=== PATIENT | female | born 1995 | race Two or more races ===

== ENCOUNTER 2023-06-15 16:16 | Emergency (ER) | payer MEDICAID ==
[~2023-06-15] VITALS: Ht 157.5 cm; Wt 105.4 kg
[2023-06-15 16:52] VITALS: BP 122/75; PULSE 79; RESP 20; O2SAT 98
== END 2023-06-16 01:39 | disposition left against medical advice (07) ==
LOC: ER 16:16
DX: H92.02 Otalgia, left ear (principal); R50.9 Fever, unspecified; Z53.21 Procedure and treatment not carried out due to patient leaving prior to being seen by health care provider

== ENCOUNTER 2024-05-15 10:05 | Emergency (ER) | payer MEDICAID ==
[~2024-05-15] VITALS: Ht 160 cm; Wt 100.0 kg
[2024-05-15 10:09] VITALS: BP 116/63; PULSE 86; RESP 16; O2SAT 94
[2024-05-15] MEDS ORDERED: MORPHINE SULFATE 4 MG/ML SYR/VIAL IV ONE (11:00)
[2024-05-15] MEDS ORDERED: SODIUM CHLORIDE 0.9% 1,000 ML IV ONE (11:00)
[2024-05-15] MEDS ORDERED: ONDANSETRON HCL 4 MG/2 ML VIAL IV ONE (11:00)
--- NOTE | 2024-05-15 12:16 | ED.PDOC ---
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 Patient reports that she had started experiencing vaginal bleeding with associated lower abdominal pain and lightheadedness since . Patient relays that she was seen by her doctor 2 days ago and was told she was having a miscarriage at that time. Patient states this was her first , but was not sure how far along she was. Patient denies any N/V/D, dizziness, headache, fever, or chills. Pelvic ultrasound, CBC, basic metabolic panel, coagulation panel, serum quant itative hCG, type and screen and Rh were ordered 1 L 0.9 normal saline IV bolus, morphine 4 mg IV and Zofran 4 mg IV were ordered When patient was called for studies and treatment, there was no answer. Patient was called multiple times without response. It was assumed the patient had eloped from the ED. 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, Medications, Allergies Allergies: Coded Allergies: Amoxicillin (Verified Allergy, Unknown, 06/15/23) Information Source: Patient, Emergency Med Personnel Mode of Arrival: EMS Timing: Days Prehospital treatment: None Severity: Moderate Vaginal Discharge: None Vaginal Lesions: None Bleeding Quality: Bright Red, Clotted Vaginal Mass: None Onset Of Mass/Bleeding: Spontaneous Sexual Activity: Last Consensual [place]: Unknown Control: None History of: Current Associated Signs and Symptoms: Vaginal Bleeding, Abdominal Pain, Faintness Past Medical History PAST MEDICAL HISTORY: Denies Surgical History: Appendectomy 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 Family History Family History: Reviewed,noncontributory to illness Social History Smoker: Non-Smoker Alcohol: Denies ETOH Use Drugs: Denies Drug Use Lives In: Home Constitutional: denies: chills, diaphoresis, fatigue, fever, malaise, sweats, weakness, others EENTM: denies: blurred vision, double vision, ear bleeding, ear discharge, ear drainage, ear pain, ear ringing, eye pain, eye redness, hearing loss, mouth pain, mouth swelling, nasal discharge, nose bleeding, nose congestion, nose pain, photophobia, tearing, throat pain, throat swelling, voice changes, others Respiratory: denies: cough, hemoptysis, orthopnea, SOB at rest, shortness of breath, SOB with excertion, stridor, wheezing, others Cardiovascular: reports: lightheadedness; denies: chest pain, dizzy spells, diaphoresis, Dyspnea on exertion, edema, irregular heart beat, left arm pain, palpitations, PND, syncope, others Gastrointestinal: reports: abdominal pain; denies: abdomen distended, blood streaked bowels, constipated, diarrhea, dysphagia, difficulty swallowing, hematemesis, melena, nausea, poor appetite, poor fluid intake, rectal bleeding, rectal pain, vomiting, others Genitourinary: reports: abnormal vagina bleeding; denies: burning, dyspareunia, dysuria, flank pain, frequency, hematuria, incontinence, pain, , vagina discharge, urgency, others Neurological: denies: dizziness, fainting, headache, left sided numbness, left sided weakness, numbness, paresthesia, pre-existing deficit, right sided numbness, right sided weakness, seizure, speech problems, tingling, tremors, weakness, others Musculoskeletal: denies: back pain, gout, joint pain, joint swelling, muscle pain, muscle stiffness, neck pain, others Integumetry: denies: bruises, change in color, change in hair/nails, dryness, laceration, lesions, lumps, rash, wounds, others Allergic/Immunocompromised: denies: Difficulty Healing, Frequent Infections, Hives, Itching, others Hematologic/Lymphatic: denies: anemia, blood clots, easy bleeding, easy bruising, swollen glands, others Endocrine: denies: excessive hunger, excessive sweating, excessive thirst, excessive urination, flushing, intolerance to cold, intolerance to heat, unexplained weight gain, unexplained weight loss, others Psychiatric: denies: anxiety, bipolar disorder, depression, hopeless, panic disorder, schizophrenia, sleepless, suicidal, others All Other Systems: Reviewed and Negative Physical Exam General Appearance: Mild Distress HEENT: PERRL/EOMI Neck: Full Range of Motion, Normal Inspection Respiratory: Lungs Clear, No Accessory Muscle Use, No Respiratory Distress, Normal Breath Sounds Cardiovascular: No Edema, No JVD, Regular Rate/Rhythm Breast Exam: Deferred Gastrointestinal: Soft, Suprapubic, Tenderness Genitalia: Deferred Pelvic: Deferred Rectal: Deferred Extremities: Normal inspection, Normal range of motion, Non-tender, No pedal edema Musculoskeletal : Apperance: Normal Neurologic: Alert (Oriented x4), Normal Affect, Normal Mood, Other (Moves all extremities and follows commands. Is appropriately conversant. No gross focal deficit.) Cerebellar Function: NOT DONE Reflexes: NOT DONE Skin: Dry, Normal Color, Warm Lymphatic: NOT DONE Was a procedure done? Was a procedure done?: No Differential Diagnosis (CORPORATE WELLNESS COORDINATOR) Vaginal Bleeding: - Incomplete, Blood Loss Anemia, Ectopic , UTI X-Ray, Labs, Meds, VS Vital Signs Date Time Temp Pulse Resp B/P (MAP) Pulse Ox O2 Delivery O2 Flow Rate FiO2 05/15/24 10:09 98.5 86 16 116/63 (80) 94 X-Ray, Labs, Meds, VS Comment 29-year-old female , unknown length of current brought in by EMS complaining of pelvic pain and vaginal bleeding Vitals remarkable for oxygen saturation 94% on room air Exam remarkable for suprapubic tenderness to palpation. No rebound or guarding. No tenderness to percussion. Time of 1ST Reevaluation: 12:15 Reevaluation 1ST: Unchanged Patient Education/Counseling: Diagnosis, Treatment Family Education/Counseling: No Family Present Departure 1 Departure Time of Disposition: 12:00 Impression: Primary Impression: Vaginal bleeding Additional Impression: Pelvic pain Disposition: LEFT AWOL/ELOPED Condition: Fair Discharged With: Self Critical Care Note Critical Care Time?: No Stability Stability form required: No Heart Score Heart Score: Heart Score Response (Comments) Value History N/A 0 EKG N/A 0 Age N/A 0 Risk Factors N/A 0 Troponin N/A 0 Total 0 I personally scribed for LEXI HUNT MD ([email or web address]) on 05/15/24 at 12:16. Electronically submitted by Eren Ivory ([email or web address]). LEXI HUNT MD May 15, 2024 12:16
== END 2024-05-15 12:31 | disposition left against medical advice (07) ==
LOC: ER 10:05 → EDBD 10:05 → ER 12:31
DX: N93.9 Abnormal uterine and vaginal bleeding, unspecified (principal); R55 Syncope and collapse; R42 Dizziness and giddiness; R10.2 Pelvic and perineal pain; Z88.0 Allergy status to penicillin; Z90.49 Acquired absence of other specified parts of digestive tract

== ENCOUNTER 2025-01-10 20:26 | Emergency (ER) | payer MEDICAID ==
[~2025-01-10] VITALS: Ht 157.5 cm; Wt 86.4 kg
[2025-01-10] MEDS: CYCLOBENZAPRINE HCL 10 MG TAB PO ONE (21:29)
[2025-01-10] MEDS: KETOROLAC TROMETH 60MG/2ML VIAL IM ONE (21:29)
[2025-01-10] MEDS: LIDOCAINE 5% TOPICAL PATCH TOP ONE (21:30)
[2025-01-10] MEDS: ACETAMINOPHEN 325 MG TAB PO ONE (21:30)
[2025-01-10 21:35] VITALS: BP 118/75; PULSE 85; RESP 18; TEMP 97.8; O2SAT 98
[2025-01-10 21:46] LABS: Urine Protein, UAD 1+ (Negative)
--- NOTE | 2025-01-10 22:30 | ED.PDOC ---
History of Present Illness HPI Comments 29-year-old female with past medical history of herniated disc then team for evaluation of intermittent lower back pain over the past couple of weeks. Patient states that she gets flares of pain from time to time. Had no new trauma, injury causing current discomfort over the past couple of weeks. Denies any current radiation of pain to either leg. No numbness, weakness of the extremities. No bowel or bladder incontinence. Has been taking intermittent ibuprofen with some relief. Denies any urinary symptoms. 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 Family History Family History: Reviewed,noncontributory to illness Social History Smoker: Non-Smoker Alcohol: Denies ETOH Use Drugs: Denies Drug Use Lives In: Home Constitutional: denies: chills, diaphoresis, fatigue, fever, malaise, sweats, weakness, others EENTM: denies: blurred vision, double vision, ear bleeding, ear discharge, ear drainage, ear pain, ear ringing, eye pain, eye redness, hearing loss, mouth pain, mouth swelling, nasal discharge, nose bleeding, nose congestion, nose pain, photophobia, tearing, throat pain, throat swelling, voice changes, others Respiratory: denies: cough, hemoptysis, orthopnea, SOB at rest, shortness of breath, SOB with excertion, stridor, wheezing, others Cardiovascular: denies: chest pain, dizzy spells, diaphoresis, Dyspnea on exertion, edema, irregular heart beat, left arm pain, lightheadedness, palpitations, PND, syncope, others Gastrointestinal: denies: abdomen distended, abdominal pain, blood streaked bowels, constipated, diarrhea, dysphagia, difficulty swallowing, hematemesis, melena, nausea, poor appetite, poor fluid intake, rectal bleeding, rectal pain, vomiting, others Genitourinary: denies: abnormal vagina bleeding, burning, dyspareunia, dysuria, flank pain, frequency, hematuria, incontinence, pain, , vagina discharge, urgency, others Neurological: denies: dizziness, fainting, headache, left sided numbness, left sided weakness, numbness, paresthesia, pre-existing deficit, right sided numbness, right sided weakness, seizure, speech problems, tingling, tremors, weakness, others Musculoskeletal: reports: back pain, muscle pain Integumetry: denies: bruises, change in color, change in hair/nails, dryness, laceration, lesions, lumps, rash, wounds, others Allergic/Immunocompromised: denies: Difficulty Healing, Frequent Infections, Hives, Itching, others Hematologic/Lymphatic: denies: anemia, blood clots, easy bleeding, easy bruising, swollen glands, others Endocrine: denies: excessive hunger, excessive sweating, excessive thirst, excessive urination, flushing, intolerance to cold, intolerance to heat, unexplained weight gain, unexplained weight loss, others Physical Exam General Appearance: Normal HEENT: NOT DONE Neck: NOT DONE Respiratory: Lungs Clear, No Accessory Muscle Use, No Respiratory Distress, Normal Breath Sounds Cardiovascular: Normal Peripheral Pulses, Regular Rate/Rhythm Breast Exam: Deferred Gastrointestinal: Non Tender Genitalia: Deferred Pelvic: Deferred Rectal: Deferred Extremities: None Neurologic: No Motor Deficits, No Sensory Deficits Cerebellar Function: Normal Reflexes: Normal Skin: NOT DONE Lymphatic: NOT DONE Was a procedure done? Was a procedure done?: No Differential Dx Considerations may include: herniated disc vs degenerative disc disease vs lumbar muscle spasm X-Ray, Labs, Meds, VS Vital Signs Date Time Temp Pulse Resp B/P (MAP) Pulse Ox O2 Delivery O2 Flow Rate FiO2 01/10/25 21:35 85 18 98 Room Air 01/10/25 21:35 97.8 85 18 118/75 (89) 98 97.8 01/10/25 20:37 98.6 76 18 135/91 97 98.6 Lab Test 01/10/25 21:25 Range/Units Urine Color Yellow Yellow Urine Clarity Turbid H Clear Urine pH 5.5 5.0-9.0 Urine Specific [place] 1.035 1.001-1.035 Urine Protein 1+ H Negative Urine Ketones Trace Negative Urine Blood Negative Negative /uL Urine Nitrite Negative Negative Urine Bilirubin Negative Negative Urine Urobilinogen Normal Negative mg/dL Urine Leukocyte Esterase 1+ Negative /uL Urine RBC 2 0 - 4 /hpf Urine Microscopic WBC 6 H 0-5 /HPF Urine Squamous Epithelial Cells Mod <5 /hpf Urine Bacteria None seen None Seen /hpf Urine Mucus Few None Seen Urine Glucose Normal Normal mg/dL Urine Test Negative Negative Current Medications Medications (Trade) Dose Ordered Sig/Dipika Route Start Time Stop Time Status Last Admin Ketorolac Tromethamine (Toradol Injection) 30 mg ONCE ONCE IM 01/10/25 21:00 01/10/25 21:01 DC 01/10/25 21:29 Acetaminophen (Tylenol Tablet) 975 mg ONCE ONCE PO 01/10/25 21:00 01/10/25 21:01 DC 01/10/25 21:30 Lidocaine (Lidoderm 5% Topical Patch) 1 patch ONCE ONCE TOP 01/10/25 21:00 01/10/25 21:01 DC 01/10/25 21:30 Cyclobenzaprine HCl (Flexeril Tablet) 10 mg ONCE ONCE PO 01/10/25 21:15 01/10/25 21:16 DC 01/10/25 21:29 Time of 1ST Reevaluation: 22:24 (Patient reporting improvement of discomfort after interventions. Ambulating steadily.) Reevaluation 1ST: Improved Patient Education/Counseling: Diagnosis, Treatment, Need For Follow Up Family Education/Counseling: No Family Present SEPSIS Sepsis Screen Date sepsis recognized/suspect: Jan 10, 2025 Time Sepsis recognized/suspect: 2039 Recent Procedure: No On Antibiotic Therapy: No Respiratory Rate >20: No Heart Rate >90: No Temp<36 C (96.8 F) or >38.3 C: No SBP <90 or MAP <65 mmHG: No New Acute Mental Status Change: No Is the patient on CPAP, BIPAP,: No Vital Signs Date Time Temp Pulse Resp B/P (MAP) Pulse Ox O2 Delivery O2 Flow Rate FiO2 01/10/25 21:35 85 18 98 Room Air 01/10/25 21:35 97.8 85 18 118/75 (89) 98 97.8 01/10/25 20:37 98.6 76 18 135/91 97 98.6 Medications Medications Dose Ordered Sig/Dipika Route Start Time Stop Time Status Last Admin Dose Admin Acetaminophen 975 mg ONCE ONCE PO 01/10/25 21:00 01/10/25 21:01 DC 01/10/25 21:30 Cyclobenzaprine HCl 10 mg ONCE ONCE PO 01/10/25 21:15 01/10/25 21:16 DC 01/10/25 21:29 Ketorolac Tromethamine 30 mg ONCE ONCE IM 01/10/25 21:00 01/10/25 21:01 DC 01/10/25 21:29 Lidocaine 1 patch ONCE ONCE TOP 01/10/25 21:00 01/10/25 21:01 DC 01/10/25 21:30 Departure 1 Departure Time of Disposition: 22:27 (29-year-old female with prior history of back issues and herniated disc presenting with an acute exacerbation of chronic back pain. Patient this time had no preceding injury. Does not have any numbness, weakness, tingling along the upper or lower extremities. Not concerning for acute cord compromise or radiculopathy at this time. Patient is ambulating steadily here. Since patient had no direct trauma, injury does not require any x-rays of the lumbar spine as I do not suspect underlying fractures. Urine test is negative. Patient with no specific urinary symptoms, however, urinalysis was obtained which shows no findings to suggest a UTI or pyelonephritis. Patient does not have any radiation of pain from flank to the groin area, no history of nephrolithiasis, does not seem consistent with renal colic. Not reporting any abdominal pain radiating to the back, no concerning for abdominal etiology of lower back pain. Patient was treated symptomatically here with IM Toradol, oral Tylenol, Flexeril and a topical lidocaine patch. Upon reassessment is feeling significantly improved. Pt at this time is stable for discharge further outpatient management. Advised to take Tylenol, ibuprofen around the clock over the upcoming weeks. Also advised to purchase over-the- counter Salonpas patches to apply to the back as needed. Recommended to follow up with primary care doctor has back pain may persist and she may need further outpatient workup and management.) Impression: Primary Impression: Lumbar sprain Additional Impressions: Lumbar paraspinal muscle spasm Herniated disc Disposition: HOME / SELF CARE / HOMELESS Condition: Stable Additional Instructions: Please start taking Tylenol and ibuprofen together every 6 hours over the next couple of weeks. For example: You can take 600 mg of ibuprofen and 1000 mg of Tylenol together every 6 hours. Do not exceed 4000 mg of Tylenol in a 24 hour period. You may also purchase [id number] Salonpas patches which are similar to the numbing patch that was applied to your back today. Follow-up with your primary care doctor as you may need a referral for outpatient lumbar spine injections, further imaging such as an MRI or physical therapy. Discharged With: Self Critical Care Note Critical Care Time?: No Stability Stability form required: TEDDY Martines MD Jan 10, 2025 22:30
== END 2025-01-10 23:19 | disposition home or self-care (01) ==
LOC: ER 20:26
DX: S33.5XXA Sprain of ligaments of lumbar spine, initial encounter (principal); Z90.49 Acquired absence of other specified parts of digestive tract; Z88.0 Allergy status to penicillin; M62.830 Muscle spasm of back; X58.XXXA Exposure to other specified factors, initial encounter; Y93.89 Activity, other specified; Y92.89 Other specified places as the place of occurrence of the external cause; Y99.8 Other external cause status
CPT/HCPCS: 81001; 81025; 96372; 99284; J1885

== ENCOUNTER 2025-05-04 04:50 | Emergency (ER) | payer MEDICAID ==
[~2025-05-04] VITALS: Ht 160 cm; Wt 116.0 kg
[2025-05-04] MEDS ORDERED: ACET500T58 PO (05:15)
[2025-05-04] MEDS ORDERED: PRED20TA2 PO (05:15)
--- NOTE | 2025-05-04 05:16 | ED.PDOC ---
Musculoskeletal HPI Comments 30-year-old female presents to ER with complaints of bilateral hand pain x3 days. 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 He has been taking ibuprofen for her pain without relief. Denies fever, body aches, chills, skin changes, numbness/tingling, wrist pain, extremity weakness or any further symptoms/complaints Chief Complaint: Upper Extremity Time Seen by MD: 05:14 Primary Care Provider: JOELLE Reviewed Notes: Nurses Notes, Medications, Allergies Allergies: Coded Allergies: Amoxicillin (Verified Allergy, Unknown, 06/15/23) Home Meds Active Scripts Prednisone (Prednisone) 20 Mg Tab, 20 MG PO BID for 5 Days, #10 TAB 0 Refills Prov:CALEB TELLES 05/04/25 Acetaminophen (Acetaminophen) 500 Mg Tab, 500 MG PO Q4HPRN, #30 TAB 0 Refills Prov:CALEB TELLES 05/04/25 Information Source: Patient Mode of Arrival: Ambulatory Past Medical History PAST MEDICAL HISTORY: Denies Surgical History: Appendectomy 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 Family History Family History: Unknown Social History Smoker: Non-Smoker Alcohol: Denies ETOH Use Drugs: Denies Drug Use Lives In: Home Constitutional: denies: chills, diaphoresis, fatigue, fever, malaise, sweats, weakness, others EENTM: denies: blurred vision, double vision, ear bleeding, ear discharge, ear drainage, ear pain, ear ringing, eye pain, eye redness, hearing loss, mouth pain, mouth swelling, nasal discharge, nose bleeding, nose congestion, nose pain, photophobia, tearing, throat pain, throat swelling, voice changes, others Respiratory: denies: cough, hemoptysis, orthopnea, SOB at rest, shortness of breath, SOB with excertion, stridor, wheezing, others Cardiovascular: denies: chest pain, dizzy spells, diaphoresis, Dyspnea on exertion, edema, irregular heart beat, left arm pain, lightheadedness, palpitations, PND, syncope, others Gastrointestinal: denies: abdomen distended, abdominal pain, blood streaked bowels, constipated, diarrhea, dysphagia, difficulty swallowing, hematemesis, melena, nausea, poor appetite, poor fluid intake, rectal bleeding, rectal pain, vomiting, others Genitourinary: denies: abnormal vagina bleeding, burning, dyspareunia, dysuria, flank pain, frequency, hematuria, incontinence, pain, , vagina discharge, urgency, others Neurological: denies: dizziness, fainting, headache, left sided numbness, left sided weakness, numbness, paresthesia, pre-existing deficit, right sided numbness, right sided weakness, seizure, speech problems, tingling, tremors, weakness, others Musculoskeletal: reports: others (As stated in HPI) Integumetry: denies: bruises, change in color, change in hair/nails, dryness, laceration, lesions, lumps, rash, wounds, others Allergic/Immunocompromised: denies: Difficulty Healing, Frequent Infections, Hives, Itching, others Hematologic/Lymphatic: denies: anemia, blood clots, easy bleeding, easy bruising, swollen glands, others Endocrine: denies: excessive hunger, excessive sweating, excessive thirst, excessive urination, flushing, intolerance to cold, intolerance to heat, unexplained weight gain, unexplained weight loss, others Psychiatric: denies: anxiety, bipolar disorder, depression, hopeless, panic disorder, schizophrenia, sleepless, suicidal, others Physical Exam General Appearance: No Apparent Distress, Obese HEENT: PERRL/EOMI Neck: Full Range of Motion, Non-Tender, Normal Respiratory: Chest Non-Tender, Lungs Clear, No Accessory Muscle Use, No Respiratory Distress, Normal Breath Sounds Cardiovascular: No Murmur, No Gallop, Regular Rate/Rhythm Breast Exam: Deferred Gastrointestinal: NOT DONE Genitalia: Deferred Pelvic: Deferred Rectal: Deferred Extremities: Normal capillary refill, Normal range of motion Musculoskeletal : Extremity Location: Hand (Slight TTP diffuse to all joints of bilateral hands. No erythema/swelling/skin changes noted. No bony abnormality appr eciated. Patient able to fully move all fingers bilateral hands. Pulses intact) Neurologic: Alert, No Motor Deficits, Normal Affect, Normal Mood, No Sensory Deficits Cerebellar Function: Normal Reflexes: Normal Skin: Dry, Normal Color, Warm Peripheral Pulses: 2+ Radial (R), 2+ Radial (L), 2+ Brachial (R), 2+ Brachial (L) Lymphatic: No Adenopathy Was a procedure done? Was a procedure done?: No Sedation Sedation?: No Differential Diagnosis EXT Differential Diagnosis: Cellulitis, Fracture, Dislocation, Neurovascular injury X-Ray, Labs, Meds, VS Vital Signs Date Time Temp Pulse Resp B/P (MAP) Pulse Ox O2 Delivery O2 Flow Rate FiO2 05/04/25 04:52 97.7 82 18 130/87 99 97.7 Advised to follow up with PCP in 1-2 days Patient verbalized understanding and agreeable with current plan of care Advised to return to ER immediately if symptoms worsen Time of 1ST Reevaluation: 04:54 Reevaluation 1ST: N/A Patient Education/Counseling: Diagnosis, Treatment, Prognosis, Need For Follow Up Family Education/Counseling: No Family Present Departure 1 Departure Time of Disposition: 05:14 Impression: Primary Impression: Arthralgia of hand, left Additional Impression: Arthralgia of hand, right Disposition: 01 HOME / SELF CARE / HOMELESS Condition: Stable e-Prescriptions Prednisone (Prednisone) 20 Mg Tab 20 MG PO BID for 5 Days, #10 TAB 0 Refills Prov: CALEB TELLES 05/04/25 Acetaminophen (Acetaminophen) 500 Mg Tab 500 MG PO Q4HPRN, #30 TAB 0 Refills Prov: CALEB TELLES 05/04/25 Discharged With: Self Critical Care Note Critical Care Time?: No Stability Stability form required: No Heart Score Heart Score: Heart Score Response (Comments) Value History N/A 0 EKG N/A 0 Age N/A 0 Risk Factors N/A 0 Troponin N/A 0 Total 0 CALEB TELLES May 04, 2025 05:16
[2025-05-04 07:34] VITALS: BP 125/84; PULSE 71; RESP 18; TEMP 98.2; O2SAT 100
== END 2025-05-04 07:38 | disposition home or self-care (01) ==
LOC: ER 04:50
DX: M25.542 Pain in joints of left hand (principal); M25.541 Pain in joints of right hand; Z90.49 Acquired absence of other specified parts of digestive tract; Z88.0 Allergy status to penicillin; Z79.52 Long term (current) use of systemic steroids; Z79.899 Other long term (current) drug therapy